=== PATIENT | female | born 1955 | race Caucasian/White ===

== ENCOUNTER → 2017-09-01 | Outpatient (CLI) | payer OTHER ==
[~2017-09-01] VITALS: Ht 167.6 cm; Wt 62.6 kg
[~2017-09-01] MED LIST: ALTACE5 MG PO; ASPIRIN81 M2 PO; COREG12.5 M1 PO; CYANOCOBALAMIN PO; HYDROCODON-ACE1 EAC7 PO; LIPITOR40 MG PO; METFORMIN HCL500 MG PO; NEURONTIN300 MG PO; SUPER TWIN EP1250 MG PO; TEGRETOL200 MG PO
== END | disposition home or self-care (01) ==
LOC: AMB 08:00
PROVIDERS: Internal Medicine
DX: Z12.11 Encounter for screening for malignant neoplasm of colon (principal); D12.2 Benign neoplasm of ascending colon; K63.5 Polyp of colon; K64.8 Other hemorrhoids; K59.09 Other constipation; I25.10 Atherosclerotic heart disease of native coronary artery without angina pectoris; Z95.5 Presence of coronary angioplasty implant and graft; I10 Essential (primary) hypertension; E78.5 Hyperlipidemia, unspecified; F17.200 Nicotine dependence, unspecified, uncomplicated; Z79.82 Long term (current) use of aspirin
CPT/HCPCS: 82948; 88305; 93005